=== PATIENT | female | born 1980 | race Hispanic/Latino ===

== ENCOUNTER 2017-04-28 16:41 | Emergency (ER) | payer SELFPAY ==
[~2017-04-28] VITALS: Ht 149.9 cm; Wt 73.0 kg
[~2017-04-28 16:41] MED LIST: LORTAB 5 OR; NO MEDS
[2017-04-28 17:21] LABS: URINE BLOOD DIPSTICK MODERATE (NEGATIVE); URINE CLARITY CLEAR; URINE COLOR YELLOW; URINE GLUCOSE - DIPSTICK NEGATIVE (NEGATIVE); URINE KETONE NEGATIVE (NEGATIVE); URINE LEUK ESTERASE NEGATIVE (NEGATIVE); URINE NITRITE - DIPSTICK NEGATIVE (Negative); URINE PH 5.5 (4.5-8.0); URINE PROTEIN - DIPSTICK TRACE mg/dL (NEG-TRACE); URINE SPECIFIC GRAVITY >=1.030; URINE UROBILINOGEN - DIPSTICK 0.2 E.U./dL (0.2)
[2017-04-28 17:23] LABS: HCG SERUM/URINE (NEG/POS) NEGATIVE (NEGATIVE)
[2017-04-28 17:25] LABS: URINE BILIRUBIN - DIPSTICK NEGATIVE (NEGATIVE)
[2017-04-28 17:34] LABS: URINE AMORPH SEDIMENT MODERATE hpf (NONE-FEW); URINE WBC 0-2 WBC/hpf (0-5)
[2017-04-28 18:07] LABS: HEMOGLOBIN 13.6 g/dl (12.0-16.0); IMMATURE GRANULOCYTES 0.4 % (0.0-1.0); MEAN CELL VOLUME 87.7 fL CALC (80.0-100.0); MEAN CORPUSCULAR HGB 29.8 pG CALC (26.0-32.0); NEUT# 13.59 thou/uL (2.00-7.15); RED BLOOD COUNT 4.56 mill/uL (4.20-5.60); RED CELL DISTRI WIDTH 13.1 % (11.5-15.5)
[2017-04-28 18:17] LABS: ALBUMIN 4.6 g/dL (3.2-5.0); ALKALINE PHOSPHATASE 60 u/l (38-126); AMYLASE 71 u/l (30-110); ANION GAP 16 (6-22 (CALC)); BILIRUBIN, TOTAL 0.4 mg/dL (0.0-1.4); BUN 19 mg/dL (7-17); BUN/CREATININE RATIO 27 (12-20 (CALC)); CALCIUM 9.5 mg/dL (8.4-10.2); CARBON DIOXIDE 22 mmol/l (22-30); CHLORIDE 109 mmol/l (95-108); CREATININE 0.7 mg/dL (0.5-1.0); GFR > 60 ML/MIN (>=60 (CALC)); GFR FOR AFR.AMER. > 60 ML/MIN (>=60 (CALC)); GLUCOSE 92 mg/dL (65-105); LIPASE 78 u/l (23-300); POTASSIUM 3.8 mmol/l (3.5-5.1); SGOT/AST 30 u/l (14-36); SGPT/ALT 35 u/l (9-52); SODIUM 143 mmol/l (137-146); TOTAL PROTEIN 7.5 g/dL (6.3-8.2)
[2017-04-28 23:04] LABS: HEMATOCRIT 36.7 % (37.0-47.0); HEMOGLOBIN 12.4 g/dl (12.0-16.0); IMMATURE GRANULOCYTES 0.4 % (0.0-1.0); MEAN CELL VOLUME 88.6 fL CALC (80.0-100.0); MEAN CORPUSCULAR HGB CONC 33.8 g/L CALC (32.0-36.0); NEUT# 7.22 thou/uL (2.00-7.15); RED BLOOD COUNT 4.14 mill/uL (4.20-5.60); RED CELL DISTRI WIDTH 13.1 % (11.5-15.5)
[2017-04-29] MEDS ORDERED: PRILOSEC20 MG PO (00:19)
[2017-04-29] MEDS ORDERED: AMOXICILLIN500 MG PO (00:19)
[2017-04-29] MEDS ORDERED: CLARITHROMYC500 M2 PO (00:19)
[2017-04-29 00:39] VITALS: BP 105/62
== END 2017-04-29 00:39 | disposition home or self-care (01) | DRG 392 ==
LOC: ED 16:41
PROVIDERS: Emergency Medicine
DX: K29.70 Gastritis, unspecified, without bleeding (principal); B96.81 Helicobacter pylori [H. pylori] as the cause of diseases classified elsewhere
CPT/HCPCS: Q9967; S0164

== ENCOUNTER 2018-02-18 16:15 | Emergency (ER) | payer OTHER ==
[~2018-02-18] VITALS: Ht 149.9 cm; Wt 80.0 kg
[~2018-02-18 16:15] MED LIST changes: +AMOXICILLIN500 MG PO; +CLARITHROMYC500 M2 PO; +PRILOSEC20 MG PO
[2018-02-18] MEDS ORDERED: MOTRIN400 MG PO (17:34)
[2018-02-18 17:36] VITALS: BP 120/78
== END 2018-02-18 17:40 | disposition home or self-care (01) | DRG 556 ==
LOC: ED 16:15
DX: M25.522 Pain in left elbow (principal); S50.02XD Contusion of left elbow, subsequent encounter; S53.105D Unspecified dislocation of left ulnohumeral joint, subsequent encounter; W18.30XD Fall on same level, unspecified, subsequent encounter